=== PATIENT | female | born 1985 | race Caucasian/White ===

== ENCOUNTER 2017-09-07 22:56 | Emergency (ER) | payer OTHER ==
[~2017-09-07] VITALS: Ht 160 cm; Wt 77.6 kg
[2017-09-07 23:00] VITALS: BP 100/52
--- NOTE | 2017-09-07 23:58 | NUR ---
Dr. Silver evaluating patient at bedside.
--- NOTE | 2017-09-08 00:10 | NUR ---
PT BIB SELF C/O VAGINAL BURNING, PAIN AND ITCHING. PT TOOK MONISTAT AT HOME W/ NO RELIEF.
[2017-09-08] MEDS ORDERED: FLUCONAZOLE 100 MG TAB PO STA (00:22)
[2017-09-08 00:26] LABS: APPEARANCE,URINE CLOUDY (CLEAR); BILIRUBIN,URINE NEGATIVE (NEGATIVE); BLOOD, URINE TRACE-L (NEGATIVE); COLOR,URINE YELLOW (YELLOW); LEUKOCYTE ESTERASE ,URINE 2+ (NEGATIVE); NITRITE, URINE NEGATIVE (NEGATIVE); PH,URINE 5.5 (5.0-9.0); UGLUCOSE NEGATIVE (NEGATIVE)
--- NOTE | 2017-09-08 00:32 | NUR ---
MED DIFLUCAN NOT AVAILABLE IN ER PYXIS HOUSE SUP. NOTIFIED.
--- NOTE | 2017-09-08 00:45 | NUR ---
SCANNER OPERATOR BROUGHT HERMANN.
[2017-09-08] MEDS ORDERED: FLUCONAZOLE 100 MG TAB ONE (00:50)
[2017-09-08 01:15] VITALS: BP 108/62
--- NOTE | 2017-09-08 01:15 | NUR ---
Patient discharged with v/s stable. Written and verbal after care instructions given and explained. Patient alert, oriented and verbalized understanding of instructions. Ambulatory with steady gait. All questions addressed prior to discharge. ID band removed. Patient advised to follow up with PMD. Rx of DIFLUCAN 150MG AND TERAZOL 7 VAGINAL CREAM given. Patient educated on indication of medication including possible reaction and side effects. Opportunity to ask questions provided and answered.
[2017-09-08 01:40] LABS: RBC,URINE 0-5 (RARE) /HPF (0-5)
== END 2017-09-08 01:15 | disposition home or self-care (01) ==
LOC: MED 22:56
DX: B37.3 Candidiasis of vulva and vagina (principal); Z88.1 Allergy status to other antibiotic agents
CPT/HCPCS: 81001; 87086; 99284

== ENCOUNTER 2020-07-09 04:49 | Emergency (ER) | payer OTHER ==
[~2020-07-09] VITALS: Ht 160 cm; Wt 95.3 kg
[2020-07-09 04:57] VITALS: BP 126/73
[2020-07-09] MEDS ORDERED: BACITRACIN OINT 500 UNITS/GM PKT TP ONE (05:25)
[2020-07-09] MEDS ORDERED: BACI1PAC6 TP (05:28)
[2020-07-09] MEDS ORDERED: NAPR-54 PO (05:28)
[2020-07-09 05:38] VITALS: BP 126/73
== END 2020-07-09 05:38 | disposition home or self-care (01) ==
LOC: MED 04:56
DX: T23.202A Burn of second degree of left hand, unspecified site, initial encounter (principal); Z88.1 Allergy status to other antibiotic agents; Z79.899 Other long term (current) drug therapy; X19.XXXA Contact with other heat and hot substances, initial encounter; Y93.89 Activity, other specified; Y92.89 Other specified places as the place of occurrence of the external cause; Y99.8 Other external cause status
CPT/HCPCS: 16020; 99282